=== PATIENT | female | born 1950 | race Caucasian/White ===

== ENCOUNTER 2017-11-29 05:51 | Emergency (ER) | payer OTHER ==
[~2017-11-29] VITALS: Ht 162.6 cm; Wt 71.2 kg
[2017-11-29 05:55] VITALS: Ht 162.6 cm; Wt 71.2 kg
[2017-11-29 07:00] LABS: BASOPHIL % 0.5 % (0-2); CALCIUM 8.6 mg/dL (8.5-10.1); CARBON DIOXIDE 26.1 mmol/L (21-32); CHLORIDE SERUM 103 mmol/L (98-107); CREATININE SERUM 0.6 mg/dL (0.6-1.0); GFR1 > 60 mL/min; GLUCOSE SERUM 122 mg/dL (74-106); PLATELET COUNT 207 x10^3mcL (130-400); POTASSIUM SERUM 3.4 mmol/L (3.5-5.1); RED CELL DISTRIBUTION WIDTH 13.5 % (11.5-14.5); SODIUM SERUM 140 mmol/L (136-145)
[2017-11-29 07:04] LABS: ALBUMIN 3.7 g/dL (3.4-5.0); ALKALINE PHOSPHATASE 72 U/L (46-116); ALT/SGPT 36 U/L (14-59); AST/SGOT 20 U/L (15-37); BILIRUBIN TOTAL 0.2 mg/dL (0.20-1.00); CHOLESTEROL 188 mg/dL (<200); TOTAL PROTEIN, SERUM 7.6 g/dL (6.4-8.2)
[2017-11-29 07:08] LABS: HDL CHOLESTEROL 93 mg/dL (40-60)
[2017-11-29 07:13] LABS: UA SPECIFIC GRAVITY 1.015 (1.005-1.035); microscopic required? YES; urine erythrocyte TRACE (NEGATIVE)
[2017-11-29] MEDS ORDERED: HYDROCHLOROTHIA25 MG PO (08:00)
[2017-11-29] MEDS ORDERED: PHOSLO667 MG PO (08:01)
[2017-11-29] MEDS ORDERED: ALENDRONATE SOD70 M2 PO (08:02)
[2017-11-29] MEDS ORDERED: MAGNESIUM OXID400 MG PO (08:02)
[2017-11-29 08:59] VITALS: BP 100/60
== END 2017-11-29 08:59 | disposition home or self-care (01) ==
LOC: ED 05:51
PROVIDERS: Emergency Medicine
DX: R42 Dizziness and giddiness (principal); I10 Essential (primary) hypertension
CPT/HCPCS: 82962; 83880; J2550; J7030; J8597; Q0092

== ENCOUNTER 2019-07-20 15:37 | Emergency (ER) | payer BC ==
[~2019-07-20] VITALS: Ht 167.6 cm; Wt 81.6 kg
[~2019-07-20 15:37] MED LIST: ALENDRONATE SOD70 M2 PO; HYDROCHLOROTHIA25 MG PO; MAGNESIUM OXID400 MG PO; PHOSLO667 MG PO
[2019-07-20 16:14] VITALS: Ht 167.6 cm; Wt 81.6 kg
[2019-07-20 19:26] VITALS: BP 156/78
== END 2019-07-20 19:26 | disposition home or self-care (01) ==
LOC: ED 15:37
DX: S01.112A Laceration without foreign body of left eyelid and periocular area, initial encounter (principal); I10 Essential (primary) hypertension; W01.0XXA Fall on same level from slipping, tripping and stumbling without subsequent striking against object, initial encounter; Y93.89 Activity, other specified; Y92.89 Other specified places as the place of occurrence of the external cause; Y99.8 Other external cause status
CPT/HCPCS: J2001